=== PATIENT | female | born 1935 | race Caucasian/White ===

== ENCOUNTER 2019-03-20 08:33 | Emergency (ER) | payer MEDICARE, BC ==
--- NOTE | 2019-03-20 08:42 | EDM.PDOC ---
ED HPI GENERAL MEDICAL PROBLEM - General Chief Complaint: Genitourinary Problem Stated Complaint: UTI Time Seen by Provider: 03/20/19 08:41 Source of Information: Reports: Patient, RN, RN Notes Reviewed History Limitations: Reports: No Limitations - History of Present Illness INITIAL COMMENTS - FREE TEXT/NARRATIVE: Pt presents to ER with c/o "UTI". Pt reports onset of pain and burning with bloody urine at 0300HR. Pt admits to mild nausea, urinary urgency, and frequency. Denies fever, chills, vomiting, or flank pain. Pt states she has only had one bladder infection in the past. Onset: Gradual Duration: Getting Worse Location: Reports: Other (Urinary) Quality: Reports: Burning Severity: Moderate Improves with: Reports: None Worsens with: Reports: Other (Urination) Associated Symptoms: Reports: No Other Symptoms Bladder Pain Score (Numeric/FACES): 7 - Related Data Allergies Allergy/AdvReac Type Severity Reaction Status Date / Time No Known Allergies Allergy Verified 03/20/19 08:46 Home Meds: Home Meds Alendronate Sodium [Fosamax] 70 mg PO DAILY 03/20/19 [History] Past Medical History - Past Health History Medical/Surgical History: Denies Medical/Surgical History Social & Family History - Family History Family Medical History: Noncontributory - Living Situation & Occupation Occupation: Retired ED ROS GENERAL - Review of Systems Review Of Systems: ROS reveals no pertinent complaints other than HPI. ED EXAM, RENAL/ - Physical Exam Exam: See Below Exam Limited By: No Limitations General Appearance: Alert, WD/WN, No Apparent Distress Throat/Mouth: Normal Inspection Head: Atraumatic, Normocephalic Neck: Normal Inspection Respiratory/Chest: No Respiratory Distress Cardiovascular: Regular Rate, Rhythm GI/Abdominal: Normal Bowel Sounds, Soft, No Distention, Tender (Mild suprapubic tenderness, no peritoneal signs). No: Guarding, Rigid, Rebound (Female) Exam: Deferred Back Exam: Normal Inspection. No: CVA Tenderness (L), CVA Tenderness (R) Extremities: Normal Inspection Neurological: Alert, Oriented, No Motor/Sensory Deficits Psychiatric: Normal Mood Skin Exam: Warm, Dry, Intact, Normal Color, No Rash Course - Vital Signs Last Recorded V/S: Last Vital Signs Temp 98 F 03/20/19 08:46 Pulse 79 03/20/19 08:46 Resp 16 03/20/19 08:46 BP 161/73 H 03/20/19 08:46 Pulse Ox 98 03/20/19 08:46 - Orders/Labs/Meds Orders: Active Orders 24 hr Category Date Time Status CULTURE URINE [RM] Stat Lab 03/20/19 09:09 Ordered Labs: Laboratory Tests 03/20/19 Range/Units 08:37 Urine Color Red (YELLOW) Urine Appearance Turbid (CLEAR) Urine pH 6.0 (5.0-9.0) Ur Specific Anton 1.020 (1.005-1.030) Urine Protein >=300 H (NEGATIVE) Urine Glucose (UA) Negative (NEGATIVE) Urine Ketones Negative (NEGATIVE) Urine Occult Blood Moderate H (NEGATIVE) Urine Nitrite Negative (NEGATIVE) Urine Bilirubin Negative (NEGATIVE) Urine Urobilinogen 0.2 (0.2-1.0) mg/dL Ur Leukocyte Esterase Small H (NEGATIVE) Urine RBC Packed H /HPF Urine WBC >100 H (0-5/HPF) /HPF Ur Epithelial Cells Few (NOT SEEN) /HPF Urine Bacteria Moderate H (0-FEW/HPF) /HPF Urine Mucus Not seen (NOT SEEN) /LPF Meds: Medications Discontinued Medications Generic Name Dose Route Start Last Admin Trade Name Freq PRN Reason Stop Dose Admin Ciprofloxacin 500 mg 03/20/19 08:52 03/20/19 08:56 Ciprofloxacin Hcl PO 03/20/19 08:53 500 mg ONETIME ONE Administration Ondansetron HCl 4 mg 03/20/19 08:52 03/20/19 08:56 Zofran Odt PO 03/20/19 08:53 4 mg ONETIME ONE Administration Phenazopyridine HCl 190 mg 03/20/19 08:51 03/20/19 08:56 Urinary Pain Relief PO 03/20/19 08:52 190 mg ONETIME ONE Administration Departure - Departure Time of Disposition: 09:15 Disposition: Home, Self-Care 01 Condition: Good Clinical Impression: UTI (urinary tract infection) Qualifiers: Urinary tract infection type: acute cystitis Hematuria presence: with hematuria Qualified Code(s): N30.01 - Acute cystitis with hematuria - Discharge Information *PRESCRIPTION DRUG MONITORING PROGRAM REVIEWED*: No *COPY OF PRESCRIPTION DRUG MONITORING REPORT IN PATIENT MOSHE: No Instructions: Urinary Tract Infection, Adult Forms: ED Department Discharge Additional Instructions: Rx: Cipro 500mg (antibiotic) Rx: Pyridium 200mg *Turns urine orange. Drink plenty of water or cranberry juice. Follow up in clinic in 7 to 10 days for urine recheck. - My Orders Last 24 Hours: My Active Orders 03/20/19 09:09 CULTURE URINE [RM] Stat - Assessment/Plan Last 24 Hours: My Active Orders 03/20/19 09:09 CULTURE URINE [RM] Stat
[2019-03-20] MEDS ORDERED: Phenazopyridine 95 MG Tab PO ONE (08:51)
[2019-03-20] MEDS ORDERED: Ciprofloxacin 500 MG Tab PO ONE (08:52)
[2019-03-20] MEDS ORDERED: Ondansetron 4 MG Tab.DIS PO ONE (08:52)
== END 2019-03-20 09:17 | disposition home or self-care (01) ==
LOC: DL.ED 08:33
DX: N30.01 Acute cystitis with hematuria (principal); Z79.899 Other long term (current) drug therapy
CPT/HCPCS: 81001; 87086; 99283; A9270

== ENCOUNTER 2022-11-10 11:08 | Emergency (ER) | payer MEDICARE, OTHER | END 2022-11-10 12:51 | disposition home or self-care (01) | LOC: DL.ED 11:08 | DX: R07.81 Pleurodynia (principal); M79.631 Pain in right forearm; S00.10XA Contusion of unspecified eyelid and periocular area, initial encounter; S00.83XA Contusion of other part of head, initial encounter; I10 Essential (primary) hypertension; Z88.8 Allergy status to other drugs, medicaments and biological substances; Z79.82 Long term (current) use of aspirin; Z79.899 Other long term (current) drug therapy; W00.0XXA Fall on same level due to ice and snow, initial encounter | CPT/HCPCS: 71046; 73090-RT; 73110-RT; 99283 ==

== ENCOUNTER 2024-05-17 17:19 | Emergency (ER) | payer MEDICARE, OTHER ==
[2024-05-17] MEDS ORDERED: Sodium Chloride 0.9% 10 ML Syringe FLUSH PRN (17:21)
[2024-05-17 17:27] LABS: BASOPHILS PERCENT AUTO 0.4 % (0.0-1.0); EOSINOPHILS PERCENT AUTO 4.5 % (1.0-3.0); HEMATOCRIT 33.6 % (37.0-47.0); HEMOGLOBIN 10.9 g/dL (12.0-16.0); LYMPHOCYTES PERCENT AUTO 25.9 % (20.5-50.1); MEAN CORPUSCULAR HEMOGLOBIN 31.4 pg (27.0-34.0); MEAN CORPUSCULAR HGB CONC 32.4 g/dL (33.0-35.0); MEAN CORPUSCULAR VOLUME 96.8 fL (80-100); MONOCYTES PERCENT AUTO 7.4 % (2-8); NEUTROPHILS PERCENT AUTO 61.8 % (42.2-75.2); PLATELET COUNT,PLT 221 10^3/uL (150-450); RED BLOOD CELL COUNT 3.47 10^6/uL (4.2-5.4)
[2024-05-17 17:48] LABS: LACTIC ACID 2.5 mmol/L (0.4-2.0)
[2024-05-17 17:52] LABS: A/G RATIO 1.1; ALANINE AMINOTRANSFERASE,ALT 21 U/L (14-59); ALBUMIN 3.4 g/dL (3.4-5.0); ALKALINE PHOSPHATASE 37 U/L (46-116); ANION GAP 11.1 mEq/L (7-13); ASPARTATE AMNIOTRANSFERASE,AST 18 U/L (15-37); BILIRUBIN TOTAL 0.4 mg/dL (0.2-1.0); BLOOD UREA NITROGEN,BUN 25 mg/dL (7-18); BUN/CREATININE RATIO 29.4 (No establ ref range); C-REACTIVE PROTEIN < 0.50 ng/dL (<=0.50); CALCIUM 9.5 mg/dL (8.5-10.1); CARBON DIOXIDE,CO2 32 mmol/L (21-32); CHLORIDE,CL 100 mmol/L (98-107); CREATININE 0.85 mg/dL (0.55-1.02); EST CRCL DRUG DOSING (CG) 35.49 mL/min; ESTIMATED GFR 65 mL/min (>=60); GLUCOSE RANDOM 176 mg/dL (70-99); MAGNESIUM 1.8 mg/dL (1.8-2.4); POTASSIUM,K 4.1 mmol/L (3.5-5.1); PROTEIN TOTAL,TP 6.4 g/dL (6.4-8.2); SODIUM,NA 139 mmol/L (136-145); TSH ULTRASENSITIVE 1.57 uIU/mL (0.36-3.74)
[2024-05-17] MEDS: Dexamethasone 4 MG/ML SDV IVPUSH ONE (17:57)
[2024-05-17] MEDS: Ondansetron 4 MG/2 ML SDV IVPUSH ONE ×2 (17:58→19:34)
[2024-05-17] MEDS: HYDROmorphone 0.5 MG/0.5 ML Syringe IVPUSH ONE (17:58)
[2024-05-17] MEDS: Ondansetron 4 MG/2 ML SDV ONE (19:09)
== END 2024-05-17 19:24 | disposition home or self-care (01) ==
LOC: DL.ED 17:19
DX: R55 Syncope and collapse (principal); I10 Essential (primary) hypertension; Z90.49 Acquired absence of other specified parts of digestive tract; Z90.710 Acquired absence of both cervix and uterus; Z79.82 Long term (current) use of aspirin; Z79.899 Other long term (current) drug therapy; Z88.8 Allergy status to other drugs, medicaments and biological substances
CPT/HCPCS: 36415; 71045; 80053; 83605; 83735; 84443; 84484; 85025; 86140; 93005; 93010; 96374; 96375; 99284; 99285-25; J1100; J1171; J2405

== ENCOUNTER 2024-05-19 12:56 | Emergency (ER) | payer MEDICARE ==
[2024-05-19] MEDS: HYDROmorphone 0.5 MG/0.5 ML Syringe IVPUSH ONE (13:25)
[2024-05-19] MEDS: Ondansetron 4 MG/2 ML SDV IVPUSH ONE ×2 (13:25→13:26)
[2024-05-19] MEDS: Ondansetron 4 MG/2 ML SDV ONE (13:32)
== END 2024-05-19 14:54 | disposition home or self-care (01) ==
LOC: DL.ED 12:56
DX: M54.31 Sciatica, right side (principal); I10 Essential (primary) hypertension; Z90.49 Acquired absence of other specified parts of digestive tract; Z90.710 Acquired absence of both cervix and uterus; Z79.82 Long term (current) use of aspirin; Z79.899 Other long term (current) drug therapy; Z88.8 Allergy status to other drugs, medicaments and biological substances
CPT/HCPCS: 96374; 96375; 99283; J1171; J2405

== ENCOUNTER 2024-06-14 16:24 | Emergency (ER) | payer MEDICARE ==
[2024-06-14] MEDS: Sodium Chloride 0.9% 1,000 ML IV ONE (16:45)
[2024-06-14 16:48] LABS: BASOPHILS PERCENT AUTO 0.2 % (0.0-1.0); EOSINOPHILS PERCENT AUTO 0.1 % (1.0-3.0); HEMATOCRIT 24.1 % (37.0-47.0); HEMOGLOBIN 7.8 g/dL (12.0-16.0); MEAN CORPUSCULAR HEMOGLOBIN 31.2 pg (27.0-34.0); MEAN CORPUSCULAR HGB CONC 32.4 g/dL (33.0-35.0); MEAN CORPUSCULAR VOLUME 96.4 fL (80-100); MONOCYTES PERCENT AUTO 2.8 % (2-8); NEUTROPHILS PERCENT AUTO 88.9 % (42.2-75.2); PLATELET COUNT,PLT 407 10^3/uL (150-450); WHITE BLOOD CELL COUNT,WBC 14.1 10^3/uL (5.0-10.0)
[2024-06-14 17:02] LABS: A/G RATIO 1.1; ALBUMIN 3.5 g/dL (3.4-5.0); ANION GAP 16.5 mEq/L (7-13); BILIRUBIN TOTAL 0.4 mg/dL (0.2-1.0); BUN/CREATININE RATIO 62.4 (No establ ref range); CALCIUM 8.9 mg/dL (8.5-10.1); CREATININE 0.93 mg/dL (0.55-1.02); EST CRCL DRUG DOSING (CG) 33.92 mL/min; MAGNESIUM 2.1 mg/dL (1.8-2.4); POTASSIUM,K 3.5 mmol/L (3.5-5.1); PROTEIN TOTAL,TP 6.6 g/dL (6.4-8.2)
[2024-06-14 17:04] LABS: LACTIC ACID 3.1 mmol/L (0.4-2.0)
[2024-06-14] MEDS ORDERED: Pantoprazole 40 MG in Sodium Chloride 0.9% 100 ML IV SCH (17:15)
[2024-06-14] MEDS ORDERED: proTAMINE 250 MG/25 ML SDV IVPUSH ONE (17:21)
[2024-06-14] MEDS: Pantoprazole 40 MG in Sodium Chloride 0.9% 100 ML IV SCH (17:27)
[2024-06-14] MEDS: Pantoprazole 40 MG Vial IVPUSH ONE (17:28)
[2024-06-14 18:29] LABS: APPEARANCE,URINE CLEAR (CLEAR); BILIRUBIN,URINE NEGATIVE (NEGATIVE); COLOR,URINE YELLOW (YELLOW); GLUCOSE,URINE NEGATIVE (NEGATIVE); KETONES,URINE 15 (NEGATIVE); LEUKOCYTE ESTERASE,URINE SMALL (NEGATIVE); NITRITE,URINE NEGATIVE (NEGATIVE); OCCULT BLOOD,URINE MODERATE (NEGATIVE); PROTEIN,URINE NEGATIVE (NEGATIVE); UROBILINOGEN,URINE 0.2 mg/dL (0.2-1.0)
[2024-06-14 18:41] LABS: BACTERIA,URINE MODERATE /HPF (0-FEW/HPF); EPITHELIAL CELLS,URINE FEW /HPF (NOT SEEN); RBC,URINE 0-5 /HPF (0-5)
== END 2024-06-14 18:33 ==
LOC: DL.ED 16:24
DX: K92.2 Gastrointestinal hemorrhage, unspecified (principal); D64.9 Anemia, unspecified; I10 Essential (primary) hypertension; Z90.49 Acquired absence of other specified parts of digestive tract; Z90.710 Acquired absence of both cervix and uterus; Z79.82 Long term (current) use of aspirin; Z79.899 Other long term (current) drug therapy; Z88.8 Allergy status to other drugs, medicaments and biological substances
CPT/HCPCS: 36415; 71045; 80053; 81001; 82272; 83605; 83690; 83735; 84484; 85025; 86850; 86900; 86901; 87086; 87088; 87186; 93005; 93010; 96361; 96365; 99285; J2470; J3490; J7030